=== PATIENT | male | born 1975 | race Two or more races ===

== ENCOUNTER 2024-06-28 18:40 | Emergency (ER) | payer OTHER ==
[~2024-06-28] VITALS: Ht 160 cm; Wt 52.3 kg
[2024-06-28 18:50] VITALS: BP 118/87; PULSE 64; RESP 18; TEMP 98; O2SAT 99
== END 2024-06-28 21:30 | disposition left against medical advice (07) ==
LOC: EMS 18:40
DX: T23.102A Burn of first degree of left hand, unspecified site, initial encounter (principal); Z53.21 Procedure and treatment not carried out due to patient leaving prior to being seen by health care provider

== ENCOUNTER 2024-07-05 00:03 | Emergency (ER) | payer OTHER ==
[~2024-07-05] VITALS: Ht 157.5 cm; Wt 54.5 kg
[2024-07-05 00:10] VITALS: TEMP 98
[2024-07-05] MEDS ORDERED: MUPI15CR12 TP (00:40)
[2024-07-05 00:46] VITALS: BP 130/70; PULSE 56; RESP 16; O2SAT 99
== END 2024-07-05 01:00 | disposition home or self-care (01) ==
LOC: EMS 00:04 → EDSEX 00:04 → EMS 01:00
DX: T23.202A Burn of second degree of left hand, unspecified site, initial encounter (principal); T31.0 Burns involving less than 10% of body surface; X12.XXXA Contact with other hot fluids, initial encounter; Y93.89 Activity, other specified; Y92.89 Other specified places as the place of occurrence of the external cause; Y99.8 Other external cause status
CPT/HCPCS: 99283; Z7502